=== PATIENT | female | born 1950 | race Caucasian/White ===

== ENCOUNTER 2016-07-22 05:55 | Inpatient (IN) | payer MEDICARE ==
--- NOTE | 2016-07-18 16:37 | HP ---
HISTORY AND PHYSICAL: DATE OF ADMISSION/SURGERY: 07/22/16 ATTENDING SURGEON: Dr. Reza Connor. (DICTATED BY LIDIA BRUMFIELD) PROCEDURE: Left total knee arthroplasty. DATE OF OFFICE VISIT: 07/17/16 CHIEF COMPLAINT: Left knee pain. HISTORY OF PRESENT ILLNESS: The patient is a very pleasant 65-year-old female who presents today for history and physical examination prior to undergoing a left total knee replacement. In brief, the patient has been suffering with some osteoarthritis of the left knee for several years and has tried multiple conservative treatments such as injections both Synvisc and steroid as well as exercise and NSAID therapy without relief. She is elected to undergo a left total knee replacement on 07/22/16. PAST MEDICAL HISTORY: 1. Hypothyroidism. 2. Vitamin D deficiency. 3. Osteopenia. 4. GERD. 5. History of lymphedema with bilateral edema in lower extremities. 6. Obstructive sleep apnea, currently using a CPAP. 7. Hypertension. 8. Gilbert syndrome. PAST SURGICAL HISTORY: 1. Appendectomy. 2. Ovarian cysts x2. 3. THANIA/BSO. 4. Cholecystectomy. 5. Right elbow ORIF. MEDICATIONS: 1. Aldactone 25 mg b.i.d. 2. Caltrate b.i.d. 3. Synthroid 25 mcg p.o. daily. 4. Vitamin D3 supplementation. ALLERGIES: CLEOCIN. FAMILY MEDICAL HISTORY: Mother with lung cancer, nonsmoker. Father with heart disease and hypertension. SOCIAL HISTORY: No tobacco use. Occasional alcohol use. Lives at home with her daughter, grandchildren, and . REVIEW OF SYSTEMS: General: Negative for fevers, chills, or night sweats. No difficulty with anesthesia. HEENT: Negative for headache, lightheadedness, or syncopal episodes. Integument: Negative for abrasions, lesions, open wounds, sores or difficulty with healing. Cardiothoracic: Negative for chest pain, palpitations, or edema. Positive for hypertension. Pulmonary: Negative for shortness of breath with exertion, chronic cough with COPD. GI: Negative for nausea, vomiting, constipation, diarrhea, or GERD. : Negative for nocturia, urinary frequency, urgency, history of UTIs or kidney problems. Musculoskeletal : Positive for generalized arthritis with mild chronic back pain and positive for left knee pain, positive for right knee pain. Neuro: Negative for paresthesias, numbness. No history of seizure, stroke, or epilepsy. Endocrine : Negative for diabetes. Positive for hypothyroidism. Hematologic: Negative for easy bruising, anemia, or excessive bleeding. No history of DVT or PE. Infectious Disease: Negative for MRSA, hepatitis C, or HIV. PHYSICAL EXAMINATION GENERAL: Well appearing, in no acute distress. Alert female appearing stated age. VITAL SIGNS: Height 63 inches, weight 290 pounds. Pulse 88, blood pressure 134 /87, respirations 20, and temperature 98.3. Pain level is 3/10 currently. BMI 51.4. HEENT: Normocephalic, atraumatic. EOMI. NECK: Supple. Trachea midline. PULMONARY: Lungs clear to auscultation bilaterally. No crackles, rhonchi, or wheezes. CARDIOVASCULAR: Regular rate and rhythm. No murmurs, gallops, or rubs. Minimal edema in bilateral lower extremities. ABDOMEN: Soft, nontender, nondistended. Positive obesity. No CVA tenderness bilaterally. NEUROLOGIC: Alert and oriented x3. Cranial nerves grossly intact. Sensation intact to light touch in bilateral lower extremities. MUSCULOSKELETAL: Minimal edema on bilateral lower extremities. Negative Homans sign bilaterally. Posterior tibial pulses 2+ bilaterally. Sensation is intact to light touch bilateral lower extremities. Range of motion of left knee approximately 0-110 degrees. DIAGNOSTIC STUDIES: MRI of the left knee dated 05/27/16. IMPRESSION: The patient is a very pleasant 65-year-old female, who presents today for history and physical examination prior to undergoing a left total knee replacement on 07/22/16. She was recently seen by her primary care physician on 06/21/16 and was cleared for surgery. She will undergo preoperative testing today including a repeat EKG and blood work. She would like to return home if at all possible after the procedure and has made arrangements to live on one floor. A prescription for Percocet, Coumadin, and Colace was sent to the [facility] in [place] and she was educated to bring her CPAP with her on the date of surgery. LIDIA BRUMFIELD [id number]/[facility] #: [id number] [facility]
[2016-07-22] MEDS ORDERED: Buffered Lidocaine 1% SYRIN* 3 ML/SYR SYRINGE INTRADERM ONE (06:00)
[2016-07-22] MEDS ORDERED: Famotidine IV* 10 MG/ML 2 ML (20 mg) IV ONE (06:00)
[2016-07-22] MEDS ORDERED: Dexamethasone IV* 4 MG/ML 1 ML (4 MG) IV SLOW PU ONE (06:00)
[2016-07-22] MEDS ORDERED: fentaNYL* 50 MCG/ML 2 ML VIAL (100 MCG VIAL) IV PRN (07:16)
[2016-07-22] MEDS ORDERED: DiMENhydriNATE IV* 50 MG/ML VIAL IV PUSH PRN ×2 (07:16→11:20)
[2016-07-22] MEDS ORDERED: Ondansetron INJ* 2 MG/ML VIAL IV PRN ×2 (07:16→11:20)
[2016-07-22] MEDS ORDERED: PROCHLORPERAZINE INJ 5 MG/ML 2 ML VIAL IV PRN ×2 (07:16→11:20)
[2016-07-22] MEDS ORDERED: fentaNYL* 50 MCG/ML 2 ML VIAL (100 MCG VIAL) ONE ×3 (08:00→12:28)
[2016-07-22] MEDS ORDERED: Midazolam* 1 MG/ML 5 ML VIAL (5 MG) ONE (08:00)
[2016-07-22] MEDS ORDERED: HYDROmorphone* 1 MG/ML 1 ML SYR ONE ×3 (08:00→12:27)
[2016-07-22] MEDS ORDERED: Morphine PF AMP (0.5MG/ML)* 5 MG/10 ML AMP ONE (08:00)
[2016-07-22] MEDS ORDERED: Famotidine IV* 10 MG/ML 2 ML (20 mg) ONE (08:27)
[2016-07-22] MEDS ORDERED: ceFAZolin 2 GM PREMIX(*) 2 GM/50 ML BAG IVPB ONE (08:27)
[2016-07-22] MEDS ORDERED: Dexamethasone IV* 4 MG/ML 1 ML (4 MG) ONE (08:27)
[2016-07-22] MEDS ORDERED: Meperidine SYRINGE* 50 MG/ML ONE (09:52)
[2016-07-22] MEDS ORDERED: ceFAZolin 1 GM in Dextrose (*) 1 GM/50 ML BAG IVPB ONE (09:56)
[2016-07-22] MEDS ORDERED: Bupivacaine 0.5% SDV PF* 30 ML VIAL ONE (11:04)
[2016-07-22] MEDS ORDERED: Propofol* 1,000 MG/100 ML BTL ONE (11:04)
[2016-07-22] MEDS ORDERED: Nalbuphine* 20 MG/ML 1 ML VIAL IV PRN (11:20)
[2016-07-22] MEDS ORDERED: Naloxone* 0.4 MG/ML 1 ML VIAL IV PRN (11:20)
[2016-07-22] MEDS ORDERED: diPHENhydraMINE IV* 50 MG/ML 1 ml VIAL (BENADRYL) IV PRN (11:20)
[2016-07-22] MEDS ORDERED: Propofol* 10 MG/ML 20 ML BTL IV PUSH ONE (12:25)
[2016-07-22] MEDS ORDERED: Pseudoephedrine TAB* 30 MG PO PRN (12:58)
[2016-07-22] MEDS ORDERED: Bisacodyl SUPP* 10 MG SUPP PR PRN (13:04)
--- NOTE | 2016-07-22 13:55 | RAD ---
Indication: Postop left total knee replacement. 2 views of left knee demonstrates left knee replacement in satisfactory position. No loosening is noted. IMPRESSION: Left knee replacement in satisfactory position.
[2016-07-22] MEDS ORDERED: ceFAZolin 1 GM in Dextrose (*) 1 GM/50 ML BAG IVPB SCH (14:00)
[2016-07-22] MEDS ORDERED: Warfarin TAB(*) 10 MG PO ONE (17:00)
[2016-07-22] MEDS: ceFAZolin 1 GM in Dextrose (*) 1 GM/50 ML BAG IVPB SCH (19:41)
[2016-07-22] MEDS ORDERED: Spironolactone TAB* 25 MG PO SCH (21:00)
[2016-07-22] MEDS ORDERED: oxyCODONE/Acetamin 5/325 MG* TAB PO PRN (21:04)
[2016-07-22] MEDS: Docusate CAP* 100 MG PO SCH (21:12)
--- NOTE | 2016-07-22 21:12 | CONS ---
CONSULTATION REPORT: DATE OF CONSULTATION: 07/22/16 ATTENDING PHYSICIAN WHILE IN THE HOSPITAL: Dionisio Felder MD (report being dictated by Cliff Herbert NP). REQUESTING PHYSICIAN FOR CONSULT: Dr. Connor. REASON FOR MEDICAL CONSULTATION: Medical management of comorbid medical conditions. HISTORY OF PRESENT ILLNESS: I refer you to Dr. Connor's H and P for further details. In short, Ms. Can is a 65-year-old female patient who presented to Dr. Connor's service in the outpatient setting with complaints of left knee pain. She had been dealing with the pain for some time. She had significant osteoarthritis in his knee. She had failed conservative management. She had injections with steroids. She endured PT and also took NSAIDs without relief. She sought care with Dr. Connor and it was felt that she would benefit from a total knee replacement, which she underwent today. She does carry a history of hypothyroidism, vitamin D deficiency, osteopenia, GERD, history of lymphedema with bilateral lower extremity edema and she has a history of GREGORIA, hypertension and Gilbert syndrome. Because of these medical complexities, we were asked to evaluate in consult. She was evaluated in the PACU. She states her biggest complaint is that she feels tired. She specifically denies having any chest pain or shortness of breath. She says that she does not really have sensation in her lower extremities yet, she did receive a spinal. She denies having any abdominal discomfort or back pain. She does state that she recently finished a course of Bactrim for UTI, which was found preoperatively. She denies having any shortness of breath, denies chest pain and states that otherwise she is feeling well besides feeling tired and denies feeling lightheaded or drowsy. She also does admit to taking her diuretics this morning preoperatively, but because of her complexity, we were asked to evaluate in consult. PAST MEDICAL HISTORY: Significant for; 1. Hypothyroidism. 2. GERD. 3. Osteopenia. 4. GREGORIA. 5. Lymphedema. 6. Hypertension. 7. Gilbert syndrome. PAST SURGICAL HISTORY: 1. She has had an appendectomy. 2. Ovarian cyst removal x2. 3. Total abdominal hysterectomy with bilateral salpingo-oophorectomy. 4. She has had a cholecystectomy and she has had a right elbow ORIF. HOME MEDICATIONS: According to the preoperative list she provided includes; 1. Spironolactone 1 tablet p.o. b.i.d. 2. Sudafed 1 tablet p.o. as needed per instructions. 3. Multivitamin 1 tablet daily. 4. Synthroid 1 tablet p.o. daily. 5. Advil 2 tablets p.o. every 6 hours as needed. 6. Bumex 1 tablet in the morning. 7. Benadryl 1 tablet at bedtime as needed. 8. Tylenol 2 tablets p.o. every 6 hours as needed for pain. ALLERGIES TO MEDICATIONS: Include CLINDAMYCIN. FAMILY HISTORY: Her mother had a history of lung cancer. Father had a history of heart disease. SOCIAL HISTORY: She does not smoke. She does not drink alcohol. She is and her is her surrogate decision maker. REVIEW OF SYSTEMS: There is no documented fever. She denied any significant weight change. There was no double vision. She denies having any ear discharge. There is no rhinorrhea. No sore throat. No thyroid enlargement. She denies having any chest pain. There is no orthopnea. No nocturnal dyspnea. There is no abdominal pain. No nausea. No vomiting. No dysuria. No frequency. No seizure. No loss of consciousness. No pruritus. No skin ulcerations. Review of 14 systems completed, all others negative. PHYSICAL EXAMINATION: Vital Signs: Blood pressure 86/56, pulse 62, respirations 14, O2 saturation 98%, she is on 4 L, and her temperature was 97.2. Generally, at this time, Ms. Can is a 65-year-old female patient. She is sitting in the PACU stretcher. She does not appear to be in any acute distress. HEENT: Head is atraumatic. Eyes: EOMs intact. Sclerae were anicteric and not pale. Pupils are reactive to light. Neck was supple. Throat ; oral mucosa appeared to be dry. No oropharyngeal erythema. Heart: Sounds S1 and S2. Regular rate and rhythm. No murmurs, rubs, or gallops. Lungs: Clear to auscultation bilaterally. No wheezes, rales, or rhonchi. Abdomen: Soft, flat, and nontender. Bowel sounds were present. Extremities: Pulses were 2+ throughout. She has no sensation in lower extremities. She has minimal movement just to the toes of the lower extremities currently. She has good pulses and good capillary refill. She is moving the upper extremities. Neurologically she is drowsy, but she does awaken to her name. She does follow commands. She is alert and oriented x3. Her speech is clear. Tongue is midline. She had no facial drooping and no gross obvious focal deficits. Her skin is intact with the exception she has an incision to the left knee, which is covered with an Benedict bandage and there is no drainage noted at this point. LABORATORY DATA: Her labs preoperatively reveals WBC of 11.0, RBC of 5.23, hemoglobin 15.6, hematocrit 47, platelet count of 313. INR is 0.94. The sodium is 137, potassium 4.6, chloride 103, bicarb 26, BUN 15, creatinine 0.73, glucose of 94, total bilirubin of 1.5, AST 27, ALT 31. Urine preop showed positive nitrites, 3+ leukocyte esterase, 3+ WBC, 1+ bacteria. The micro did grow out greater than 100,000 colonies of E. coli and again the patient was treated with Bactrim for 5 days and has finished the course. She did have a preop chest x-ray, which revealed no active cardiopulmonary disease. She had a EKG that was in the chart that showed a normal sinus rhythm. No ST elevations or T-wave inversions. There was a rate of 60. Old medical records reviewed. ASSESSMENT AND PLAN: Ms. Can is a 65-year-old female patient coming into the hospital today for an elective left total knee arthroplasty. We were asked to evaluate in consultation to help manage her other medical problems. Our recommendations at this point are; 1. Status post left total knee replacement; I will defer the management of this to Dr. Connor and his team. 2. Hypothyroidism. Continue the Synthroid. 3. Gastroesophageal reflux disease. Continue with her current medical management. 4. Osteopenia, she can follow with her primary. 5. Obstructive sleep apnea, continue with CPAP. 6. Hypertension with a history of lymphedema. I do see that she is Aldactone and Bumex. Her postoperative pressures are right around 90 systolically. She did take her diuretics in the morning. My plan at this point is to hold the diuretics. We will actually hydrate her and we will continue to follow. She is asymptomatic with the blood pressure. I suspect that part of the low pressure now is probably related to the spinal. We will just continue to monitor for the time being and restart diuretics when we are able. 7. History of Gilbert syndrome. She can follow with her primary. Not an active issue currently. 8. DVT prophylaxis. We will defer to the primary team. 9. Fluids, electrolytes and nutrition. She can have a regular diet. 10. Obstructive sleep apnea. I did order a CPAP and we will put her on continuous pulse oximetry overnight. 11. Code status. Full code. TIME SPENT: Time spent on the admission was approximately 60 minutes, greater than half time spent with face to face with the patient obtaining my history and physical, the other half of the time spent going over the plan of care with the patient and implementing the plan of care. I discussed the plan of care with my attending, Dr. Felder who is in agreement. CLIFF HERBERT NP CC: Dr. Quinonez; Dr. Connor* [id number]/[facility] #: [id number] MTDIra
[2016-07-22] MEDS: Magnesium Hydroxide LIQ* 30 ML UDC PO SCH (21:13)
[2016-07-22] MEDS ORDERED: oxyCODONE/Acetamin 5/325 MG* TAB ONE (21:15)
--- NOTE | 2016-07-23 03:14 | OP ---
DATE OF OPERATION: 07/22/16 - ROOM #342 DATE OF : 50 SURGEON: Reza Connor MD. ACCESS REPRESENTATIVE: LIDIA Rosario. ANESTHESIOLOGIST: Jamari Can MD ANESTHESIA: Spinal/regional/sedation. PRE-OP DIAGNOSIS: Osteoarthritis, left knee. POST-OP DIAGNOSIS: Osteoarthritis, left knee. OPERATIVE PROCEDURE: Left total knee arthroplasty. ESTIMATED BLOOD LOSS: 100 cc. COMPLICATIONS: None. HARDWARE: Monster Persona #5 femur, D tibia, 10-mm polyethylene, 32-mm all- polyethylene patellar button. SUMMARY: Mrs. Can is a 65-year-old female who has had a long history of troubles with both of her knees. She has been treated conservatively with antiinflammatories, physical therapy, and various injections and they had worked well until recently. The most recent injection; however, really did not give her any of the relief that she previously had and she is having significant difficulty just with simple ADLs secondary to pain. I discussed with her that a total knee arthroplasty should work well to decrease her pain and improve her function. Risks of surgery such as infection, scar formation, stiffness, DVT, pulmonary embolism, hardware failure and continued pain were some of the risks discussed. She had been declared medically optimized and wished to proceed. DESCRIPTION OF PROCEDURE: The patient was brought to the OR and after a block had been placed in the holding area. Spinal anesthesia was introduced and a Aleman catheter was placed. Tourniquet was placed over the proximal left thigh and was used during the case. Total tourniquet time would be a little bit over 60 minutes. Left knee was prepped and then draped. Esmarch was used to exsanguinate the leg and the tourniquet was raised. Midline incision was made just medial to the tibial tubercle and carried upwards for about 7 or 8 cm over the superior pole of the patella. Incision was carried down through the skin and subcutaneous fat. Small bleeders encountered were ligated using electrocautery. Extensor mechanism was exposed and a sharp parapatellar arthrotomy was made. Clear thickened yellowish joint fluid was encountered. Obvious wear of the patellar was immediately evident. Jo Campbell was assisting during the case and she helped with positioning as well as the approach, placement of the component and closure and the case would not have been possible to do without her. Fat pad was sharply excised and the soft tissues were sharply elevated from the medial side of the tibia. Patella measured 20 mm in thickness and initially a 7-mm cut was taken and then this was gently shaved until I left about 12-mm worth of patella. The patella was then easily subluxed laterally and the knee was flexed up. Step drill was used to open the femoral canal and the intramedullary guide was placed. Guide was adjusted until it felt parallel to the epicondyles and then pinned into place. Distal femoral cutting guide was then pinned into place, and intramedullary guide was removed. Distal femoral cut was taken and it appeared a nice cut was obtained. Femur was sized and she sat right on a 5. Holes were drilled and cutting block was placed. Superior hole was drilled and this came up nicely right on the top side of the femur, so I knew I would not notch the anterior cortex. Anterior and posterior femoral cuts followed by the chamfer cuts were all taken. Attention was turned to the tibia. Step drill was used to open the tibial canal and the intramedullary guide was placed. Outrigger was placed and adjusted until it appeared it would take 2 mm from the worn medial side. Cutting guide was then adjusted using the extramedullary alignment shannan and then pinned into place. Proximal tibial cut was taken and it appeared a nice cut was obtained. A 10-spacer block was placed nice and flat over the top side of the tibia and with a drop shannan, the alignment of the tibial cut appeared perfect. With flexion, she sat quite nicely and just had a little bit of plane , but with extension, she was really quite tight on the medial side and loose on the lateral side. Not enough bone had been taken from the medial femoral condyle and using a free hand cut, approximately 1.5 mm was taken. Cutting block was replaced so that I could recut the chamfer blocks and now with a 10 block, she sat much better. There was just a little bit of play, which was just about the same as she was prior to surgery. Tibia was then sized and a D sat very nicely. Proximal tibia was drilled and then punched. Trial femur was then placed and the notch cut was finished and stud holes were drilled. Trial polyethylene was placed and with a 10, she came out nicely into full extension and was not too tight and she could flex to about 105 degrees. She was very limited by her body habitus as her pannus came down and flexion upwards of the leg was difficult because of that pannus. The knee was stable throughout. The patella tracking appeared to be fine. Patella was sized and a 29 sat very nicely. Holes were drilled and trial was snapped into place. Again with flexion and extension, patella tracking appeared fine. Trial instrumentation was removed and the knee was copiously pulse lavaged. Cement was being prepared. Tibia followed by femur and patella were all cemented into place. Excess cement was removed and cement was allowed to harden. Once the cement had hardened, the knee was again searched for excess cement and several small pieces were found. She was again trialed with a 10 trial polyethylene and had the same wonderful motion and stability. A 10 polyethylene was then snapped into place. Knee was again copiously pulse lavaged and the parapatellar arthrotomy was repaired using interrupted #1 Vicryl sutures. Tourniquet was let down and no significant bleeding was encountered. Subcutaneous tissues were copiously pulse lavaged and the subcutaneous tissues were approximated using 2- 0 Vicryl. Skin was closed using maximo. Sterile dressing was applied. The patient was then awake and stable on transfer back to the recovery room. [id number]/[facility] #: [id number] NURA
[2016-07-23] MEDS ORDERED: oxyCODONE/Acetamin 5/325 MG* TAB PO PRN (03:20)
[2016-07-23] MEDS ORDERED: Acetaminophen TAB* 325 MG PO PRN (03:20)
[2016-07-23] MEDS ORDERED: Ondansetron INJ* 2 MG/ML VIAL IV PRN (03:20)
[2016-07-23] MEDS ORDERED: diPHENhydraMINE IV* 50 MG/ML 1 ml VIAL (BENADRYL) IV PRN (03:20)
[2016-07-23] MEDS ORDERED: Morphine INJ* 2 MG/ML 1 ML SYRINGE IV PRN (03:20)
[2016-07-23] MEDS: oxyCODONE/Acetamin 5/325 MG* TAB PO PRN ×4 (03:46→20:21)
[2016-07-23] MEDS: ceFAZolin 1 GM in Dextrose (*) 1 GM/50 ML BAG IVPB SCH ×2 (03:46→11:32)
[2016-07-23 05:02] LABS: Hematocrit 37 % (35-47); Hemoglobin 12.1 g/dl (12.0-16.0)
[2016-07-23 05:10] LABS: BUN/Creatinine Ratio 17.4 (8-20); Calcium 8.7 mg/dL (8.6-10.3); EGFR African American 78.8 (>60); EGFR Non-African American 61.3 (>60)
[2016-07-23] MEDS: Levothyroxine TAB* 25 MCG TAB PO SCH (05:29)
[2016-07-23] MEDS: Magnesium Hydroxide LIQ* 30 ML UDC PO SCH ×2 (07:25→20:21)
[2016-07-23] MEDS: Docusate CAP* 100 MG PO SCH ×2 (07:25→20:21)
[2016-07-23] MEDS: Prenatal Vitamin TAB PO SCH (07:25)
[2016-07-23] MEDS: oxyCODONE TAB* 5 MG TAB PO PRN ×4 (07:25→22:50)
[2016-07-23] MEDS: Heparin VIAL(*) 5000 UNITS/ML VIAL (FIVE THOUSAND) SUBCUT SCH ×2 (07:26→20:24)
--- NOTE | 2016-07-23 07:55 | PN ---
Progress Note - Progress Note SOAP: Subjective: pt resting comfortably with no complaints Objective: Vital Signs Temp Pulse Resp BP Pulse Ox 98.0 F 65 16 108/49 94 07/23/16 07:13 07/23/16 07:13 07/23/16 07:25 07/23/16 07:13 07/23/16 07:13 Laboratory Last Values Hgb 12.1 g/dl (12.0-16.0) 07/23/16 04:36 Hct 37 % (35-47) 07/23/16 04:36 INR (Anticoag Therapy) 1.09 (0.89-1.11) 07/23/16 04:36 Sodium 130 mmol/L (133-145) L 07/23/16 04:36 Potassium 4.0 mmol/L (3.5-5.0) 07/23/16 04:36 Chloride 97 mmol/L (101-111) L 07/23/16 04:36 Carbon Dioxide 27 mmol/L (22-32) 07/23/16 04:36 Anion Gap 6 mmol/L (2-11) 07/23/16 04:36 BUN 16 mg/dL (6-24) 07/23/16 04:36 Creatinine 0.92 mg/dL (0.51-0.95) 07/23/16 04:36 Est GFR ( Amer) 78.8 (>60) 07/23/16 04:36 Est GFR (Non-Af Amer) 61.3 (>60) 07/23/16 04:36 BUN/Creatinine Ratio 17.4 (8-20) 07/23/16 04:36 Glucose 162 mg/dL (70-100) H 07/23/16 04:36 Calcium 8.7 mg/dL (8.6-10.3) 07/23/16 04:36 incision: c/d/i PE: intact B/L LE strengths, 2+ DP pulses, intact sensation Assessment: s/p left TKA Plan: 1) continue Ancef for 24 hours 2) PT/OT- WBAT 3) continue Heparin/coumadin/SCD's for DVT prophylaxis 4) will dose coumadin 8 mg tonight
[2016-07-23] MEDS ORDERED: BUMETANIDE PO SCH (09:00)
--- NOTE | 2016-07-23 14:16 | PN ---
Subjective Date of Service: 07/23/16 Interval History: This is a 65 yo female with hypothyroidism, GERD, GREGORIA, HTN and Gilbert's syndrome who presented for an elective knee replacement with Dr Connor. Hospitalist group is consulting for co-management of medical conditions. Patient offers no acute complaints. Denies CP, SOB, abd pain, n/v. Objective Active Medications: Acetaminophen (Tylenol Tab*) 650 mg PO Q4H PRN PRN Reason: FEVER/PAIN Bisacodyl (Dulcolax Supp*) 10 mg NE DAILY PRN PRN Reason: constipation Diphenhydramine HCl (Benadryl Iv*) 25 mg IV Q6H PRN PRN Reason: itching Docusate Sodium (Colace Cap*) 100 mg PO BID [facility] Last Admin: 07/23/16 07:25 Dose: 100 mg Heparin Sodium (Porcine) (Heparin Vial(*)) 5,000 units SUBCUT Q12HR [facility] Last Admin: 07/23/16 07:26 Dose: 5,000 units Lactated Ringer's (Lactated Ringers 1000 Ml Bag*) 1,000 mls @ 100 mls/hr IV PER RATE [facility] Levothyroxine Sodium (Synthroid Tab*) 25 mcg PO 0600 [facility] Last Admin: 07/23/16 05:29 Dose: 25 mcg Magnesium Hydroxide (Milk Of Magnesia Liq*) 30 ml PO BID [facility] Last Admin: 07/23/16 07:25 Dose: 30 ml Morphine Sulfate (Morphine Inj (Syringe)*) 2 mg IV Q2H PRN PRN Reason: PAIN Multivitamins ( Vitamin Tab*) 1 tab PO QAM [facility] Last Admin: 07/23/16 07:25 Dose: 1 tab Ondansetron HCl (Zofran Inj*) 4 mg IV Q6H PRN PRN Reason: nausea Oxycodone HCl (Roxycodone Tab*) 10 mg PO Q4H PRN PRN Reason: PAIN Last Admin: 07/23/16 14:01 Dose: 10 mg Oxycodone/Acetaminophen (Percocet 5/325 Tab*) 1 tab PO Q3H PRN PRN Reason: PAIN - MODERATE Oxycodone/Acetaminophen (Percocet 5/325 Tab*) 2 tab PO Q4H PRN PRN Reason: PAIN Last Admin: 07/23/16 11:31 Dose: 2 tab Pharmacy Profile Note (Coumadin Daily Reminder*) 1 note FOLLOW UP 1700 NEVA Warfarin Sodium (Coumadin Tab(*)) 8 mg PO ONCE@1700 ONE PRN Reason: Protocol Stop: 07/23/16 17:01 Vital Signs: Temp Pulse Resp BP Pulse Ox 98.0 F 76 20 100/50 96 07/23/16 10:56 07/23/16 10:56 07/23/16 14:01 07/23/16 10:56 07/23/16 10:56 Oxygen Devices in Use Now: None Appearance: Well appearing, in NAD. Up and sitting in a chair. Accompanied by her . Respiratory: Symmetrical Chest Expansion and Respiratory Effort, Clear to Auscultation Cardiovascular: NL Sounds; No Murmurs; No JVD, RRR Abdominal: NL Sounds; No Tenderness; No Distention Extremities: - - L knee in surgical dressing, 1+ LLE edema, trace RLE edema Skin: No Rash or Ulcers Neurological: Alert and Oriented x 3 Result Diagrams: 07/23/16 04:36 07/23/16 04:36 Assess/Plan/Problems-Billing Assessment: This is a 65 yo female with obesity, hypothyroidism, GERD, GREGORIA, HTN and Gilbert' s syndrome who is s/p elective L TKA by Dr Connor 07/22/16. Hospitalists have been asked to co-manage medical conditions. - Patient Problems (1) Status post total knee replacement Comment: POD #1 Management per ortho (2) HTN (hypertension) Comment: Slightly hypotensive Cont to hold diuretics, likely restart tomorrow, but will re-eval in am for readiness (3) Hypothyroidism Comment: Cont levothyroxine (4) Obesity Comment: BMI 50 (5) GERD (gastroesophageal reflux disease) Comment: No current complaints No PPI on home med list (6) GREGORIA (obstructive sleep apnea) Comment: Cont CPAP (7) Reddell syndrome Comment: Tbili 1.5 from pre-op labs No jaundice on exam (8) Full code status (9) DVT prophylaxis Comment: SQ Heparin bridging to Coumadin per other Status and Disposition: Discharge planning per ortho. Hospitalists will continue to follow along. No acute concerns.
[2016-07-23] MEDS ORDERED: Warfarin TAB(*) 4 MG PO ONE (17:00)
[2016-07-24] MEDS: oxyCODONE/Acetamin 5/325 MG* TAB PO PRN ×4 (01:01→17:37)
[2016-07-24] MEDS: oxyCODONE TAB* 5 MG TAB PO PRN ×3 (03:37→21:29)
[2016-07-24 05:59] LABS: Hematocrit 37 % (35-47); Hemoglobin 11.9 g/dl (12.0-16.0)
[2016-07-24] MEDS: Levothyroxine TAB* 25 MCG TAB PO SCH (06:24)
--- NOTE | 2016-07-24 08:46 | PN ---
Progress Note - Progress Note SOAP: Subjective: Pt is doing well. Her pain is well controlled. She is doing well with therapy. She denies CP, SOB, N/T, calf pain, or fever chills. VSS overnight Objective: PE- 65 y/o F in NAD lying comfortably in bed, A&O x 3 LLE- dressing changed, incision well healing with no sign of infection, mild swelling of the lower leg, calf soft nontender, +2 DP pulse, sensation intact Vital Signs Temp Pulse Resp BP Pulse Ox 98.5 F 83 16 131/59 92 07/24/16 07:17 07/24/16 07:17 07/24/16 08:00 07/24/16 07:17 07/24/16 08:00 Laboratory Results - last 24 hr 07/24/16 07/24/16 05:34 05:34 Hgb 11.9 L Hct 37 INR (Anticoag Therapy) 2.53 H Assessment: POD 2 s/p left TKA Plan: PT/OT- WBAT DC Heparin, hold coumadin, SCD's for DVT prophylaxis appreciate hospitalist input DC to home with DAISHA wong
[2016-07-24] MEDS: Magnesium Hydroxide LIQ* 30 ML UDC PO SCH ×2 (09:18→21:29)
[2016-07-24] MEDS: Prenatal Vitamin TAB PO SCH (09:18)
[2016-07-24] MEDS: Docusate CAP* 100 MG PO SCH ×2 (09:18→21:29)
--- NOTE | 2016-07-24 15:17 | PN ---
Subjective Date of Service: 07/24/16 Interval History: Patient offers no acute complaints. Pain is well controlled. No CP, SOB, abd pain, n/v. Objective Active Medications: Acetaminophen (Tylenol Tab*) 650 mg PO Q4H PRN PRN Reason: FEVER/PAIN Bisacodyl (Dulcolax Supp*) 10 mg DC DAILY PRN PRN Reason: constipation Diphenhydramine HCl (Benadryl Iv*) 25 mg IV Q6H PRN PRN Reason: itching Docusate Sodium (Colace Cap*) 100 mg PO BID [facility] Last Admin: 07/24/16 09:18 Dose: 100 mg Levothyroxine Sodium (Synthroid Tab*) 25 mcg PO 0600 [facility] Last Admin: 07/24/16 06:24 Dose: 25 mcg Magnesium Hydroxide (Milk Of Magnesia Liq*) 30 ml PO BID [facility] Last Admin: 07/24/16 09:18 Dose: 30 ml Morphine Sulfate (Morphine Inj (Syringe)*) 2 mg IV Q2H PRN PRN Reason: PAIN Multivitamins ( Vitamin Tab*) 1 tab PO QAM [facility] Last Admin: 07/24/16 09:18 Dose: 1 tab Ondansetron HCl (Zofran Inj*) 4 mg IV Q6H PRN PRN Reason: nausea Oxycodone HCl (Roxycodone Tab*) 10 mg PO Q4H PRN PRN Reason: PAIN Last Admin: 07/24/16 09:18 Dose: 10 mg Oxycodone/Acetaminophen (Percocet 5/325 Tab*) 1 tab PO Q3H PRN PRN Reason: PAIN - MODERATE Oxycodone/Acetaminophen (Percocet 5/325 Tab*) 2 tab PO Q4H PRN PRN Reason: PAIN Last Admin: 07/24/16 13:10 Dose: 2 tab Pharmacy Profile Note (Coumadin Daily Reminder*) 1 note FOLLOW UP 1700 [facility] Last Admin: 07/23/16 16:38 Dose: 1 note Vital Signs: Temp Pulse Resp BP Pulse Ox 98.2 F 74 16 122/64 95 07/24/16 11:23 07/24/16 11:23 07/24/16 13:10 07/24/16 11:23 07/24/16 11:23 Oxygen Devices in Use Now: None Appearance: Well appearing, in NAD. Just finishing with PT. Accompanied by her Neck: NL Appearance and Movements; NL JVP Respiratory: Symmetrical Chest Expansion and Respiratory Effort, Clear to Auscultation Cardiovascular: NL Sounds; No Murmurs; No JVD, RRR Abdominal: NL Sounds; No Tenderness; No Distention Extremities: - - 1-2+ LE edema Skin: No Rash or Ulcers Neurological: Alert and Oriented x 3 Result Diagrams: 07/24/16 05:34 07/23/16 04:36 Assess/Plan/Problems-Billing Assessment: This is a 65 yo female with obesity, hypothyroidism, GERD, GREGORIA, HTN and Gilbert' s syndrome who is s/p elective L TKA by Dr Connor 07/22/16. Hospitalists have been asked to co-manage medical conditions. - Patient Problems (1) Status post total knee replacement Comment: POD #2 Management per ortho (2) HTN (hypertension) Comment: Now normotensive Resume diuretics tomorrow (3) Hypothyroidism Comment: Cont levothyroxine (4) Obesity Comment: BMI 50 (5) GERD (gastroesophageal reflux disease) Comment: No current complaints No PPI on home med list (6) GREGORIA (obstructive sleep apnea) Comment: Cont CPAP (7) [place] syndrome Comment: Tbili 1.5 from pre-op labs No jaundice on exam (8) Full code status (9) DVT prophylaxis Comment: Coumadin per ortho INR therapeutic Status and Disposition: Discharge planning per ortho. Hospitalists will continue to follow along. No acute concerns.
[2016-07-25] MEDS: oxyCODONE/Acetamin 5/325 MG* TAB PO PRN ×3 (03:13→12:51)
[2016-07-25 05:32] LABS: Hematocrit 36 % (35-47); Hemoglobin 11.7 g/dl (12.0-16.0)
[2016-07-25] MEDS: Levothyroxine TAB* 25 MCG TAB PO SCH (06:13)
[2016-07-25] MEDS: Magnesium Hydroxide LIQ* 30 ML UDC PO SCH (08:20)
[2016-07-25] MEDS: Prenatal Vitamin TAB PO SCH (08:21)
[2016-07-25] MEDS: Docusate CAP* 100 MG PO SCH (08:21)
--- NOTE | 2016-07-25 08:46 | PN ---
Progress Note - Progress Note SOAP: Subjective: pt OOB to chair with no complaints Objective: Vital Signs Temp Pulse Resp BP Pulse Ox 98.1 F 89 18 137/75 96 07/25/16 07:21 07/25/16 07:21 07/25/16 08:21 07/25/16 07:21 07/25/16 08:00 Laboratory Last Values Hgb 11.7 g/dl (12.0-16.0) L 07/25/16 05:25 Hct 36 % (35-47) 07/25/16 05:25 INR (Anticoag Therapy) 2.69 (0.89-1.11) H 07/25/16 05:25 Sodium 130 mmol/L (133-145) L 07/23/16 04:36 Potassium 4.0 mmol/L (3.5-5.0) 07/23/16 04:36 Chloride 97 mmol/L (101-111) L 07/23/16 04:36 Carbon Dioxide 27 mmol/L (22-32) 07/23/16 04:36 Anion Gap 6 mmol/L (2-11) 07/23/16 04:36 BUN 16 mg/dL (6-24) 07/23/16 04:36 Creatinine 0.92 mg/dL (0.51-0.95) 07/23/16 04:36 Est GFR ( Amer) 78.8 (>60) 07/23/16 04:36 Est GFR (Non-Af Amer) 61.3 (>60) 07/23/16 04:36 BUN/Creatinine Ratio 17.4 (8-20) 07/23/16 04:36 Glucose 162 mg/dL (70-100) H 07/23/16 04:36 Calcium 8.7 mg/dL (8.6-10.3) 07/23/16 04:36 incision; c/d; dressing changed PE: intact B/L LE strengths, intact sensation, 2+DP pulses Assessment: s/p left TKA Plan: 1) hospitalist co-managing 2) hold coumadin 3) continue SCD's for DVT prophylaxis 4) home today, f/u with Nikolas in 4 weeks
--- NOTE | 2016-07-25 10:51 | PN ---
Subjective Date of Service: 07/25/16 Interval History: Patient offers no acute complaints. She is ready to return home. She has yet to have a BM since surgery. Pain is well controlled. No CP, SOB, abd pain, n/ v. Objective Active Medications: Acetaminophen (Tylenol Tab*) 650 mg PO Q4H PRN PRN Reason: FEVER/PAIN Bisacodyl (Dulcolax Supp*) 10 mg [place] DAILY PRN PRN Reason: constipation Last Admin: 07/25/16 10:14 Dose: 10 mg Diphenhydramine HCl (Benadryl Iv*) 25 mg IV Q6H PRN PRN Reason: itching Docusate Sodium (Colace Cap*) 100 mg PO BID [facility] Last Admin: 07/25/16 08:21 Dose: 100 mg Levothyroxine Sodium (Synthroid Tab*) 25 mcg PO 0600 [facility] Last Admin: 07/25/16 06:13 Dose: 25 mcg Magnesium Hydroxide (Milk Of Magnesia Liq*) 30 ml PO BID [facility] Last Admin: 07/25/16 08:20 Dose: 30 ml Morphine Sulfate (Morphine Inj (Syringe)*) 2 mg IV Q2H PRN PRN Reason: PAIN Multivitamins ( Vitamin Tab*) 1 tab PO QAM [facility] Last Admin: 07/25/16 08:21 Dose: 1 tab Ondansetron HCl (Zofran Inj*) 4 mg IV Q6H PRN PRN Reason: nausea Oxycodone HCl (Roxycodone Tab*) 10 mg PO Q4H PRN PRN Reason: PAIN Last Admin: 07/24/16 21:29 Dose: 10 mg Oxycodone/Acetaminophen (Percocet 5/325 Tab*) 1 tab PO Q3H PRN PRN Reason: PAIN - MODERATE Oxycodone/Acetaminophen (Percocet 5/325 Tab*) 2 tab PO Q4H PRN PRN Reason: PAIN Last Admin: 07/25/16 08:21 Dose: 2 tab Pharmacy Profile Note (Coumadin Daily Reminder*) 1 note FOLLOW UP 1700 [facility] Last Admin: 07/24/16 15:59 Dose: Not Given Vital Signs: Temp Pulse Resp BP Pulse Ox 98.1 F 89 16 137/75 96 07/25/16 07:21 07/25/16 07:21 07/25/16 10:21 07/25/16 07:21 07/25/16 08:00 Oxygen Devices in Use Now: None Appearance: Well appearing, in NAD Respiratory: Symmetrical Chest Expansion and Respiratory Effort, Clear to Auscultation Cardiovascular: NL Sounds; No Murmurs; No JVD, RRR Abdominal: NL Sounds; No Tenderness; No Distention Extremities: - - 2+ LLE edema, 1+ RLE Neurological: Alert and Oriented x 3 Result Diagrams: 07/25/16 05:25 07/23/16 04:36 Assess/Plan/Problems-Billing Assessment: This is a 65 yo female with obesity, hypothyroidism, GERD, GREGORIA, HTN and Gilbert' s syndrome who is s/p elective L TKA by Dr Connor 07/22/16. Hospitalists have been asked to co-manage medical conditions. - Patient Problems (1) Status post total knee replacement Comment: POD #3 Management per ortho, plan for discharge (2) HTN (hypertension) Comment: Now normotensive Resumed diuretics today (3) Hypothyroidism Comment: Cont levothyroxine (4) Obesity Comment: BMI 50 (5) GERD (gastroesophageal reflux disease) Comment: No current complaints No PPI on home med list (6) GREGORIA (obstructive sleep apnea) Comment: Cont CPAP (7) [place] syndrome Comment: Tbili 1.5 from pre-op labs No jaundice on exam (8) Full code status (9) DVT prophylaxis Comment: Coumadin per ortho INR therapeutic Status and Disposition: Discharged per ortho today. Recommend resuming all home medications, no medical concerns during hospital stay.
[2016-07-25 12:07] VITALS: BP 130/59
--- NOTE | 2016-07-25 22:23 | DS ---
DISCHARGE SUMMARY: DATE OF ADMISSION: 07/22/16 DATE OF DISCHARGE: 07/25/16 SURGEON: Reza Connor MD (DICTATED BY LIDIA CASSIDY) PRINCIPAL DIAGNOSIS: Osteoarthritis, left knee. DISCHARGE DIAGNOSIS: Osteoarthritis, left knee. HISTORY OF PRESENT ILLNESS: Ms. Can is a 65-year-old female with complaints of left knee pain secondary to end-stage osteoarthritis of the left knee. She failed conservative management and has elected to proceed with a left total knee arthroplasty. HOSPITAL COURSE: Ms. Can is a 65-year-old female. She was admitted electively to the hospital on 07/22/16 and underwent a left total knee arthroplasty. She tolerated the procedure well. Postoperatively, she was placed on Coumadin for DVT prophylaxis. On postoperative day #1, her H and H was 12.1 and 37. On postoperative day #2, her H and H was 11.9 and 37. On postoperative day #3, her H and H was 11.7 and 36. On postoperative day #2, her INR was 2.53 and her Coumadin was held. At the time of discharge, her INR was 2.69. She was discharged home on 07/25/16 in stable condition. DISCHARGE MEDICATIONS: 1. Multivitamin. 2. Percocet. 3. Coumadin. 4. Colace. 5. Synthroid. PHYSICAL EXAMINATION UPON DISCHARGE: She was afebrile. Vital signs are stable. Her wound was clean, dry, and healing well. She was able to ambulate with the aid of assistive devices. Her lower extremity muscle group strengths were intact at 5/5. She has 2+ dorsalis pedis pulses. Intact sensation. DISCHARGE INSTRUCTIONS: Ms. Can was discharged home in stable condition. She was given a prescription for Coumadin for DVT prophylaxis as well as Percocet for pain control. She can take Percocet every 4 to 6 hours. Since her INR was elevated today, we are going to hold her Coumadin for tonight and __ ____ and she was instructed to take 4 mg Friday night and 4 mg Friday night. She will have her INR rechecked on Friday with [facility]. She can follow up with Dr. Connor in 4 weeks and we would like [facility] to take the maximo out in 14 days. We have asked her to call our office with any questions or concerns prior to that time. LIDIA CASSIDY [id number]/[facility] #: [id number] [facility]ITAL[facility]
== END 2016-07-25 14:49 | disposition home health service (06) | DRG 470 ==
LOC: AA 07:55 → SSU 13:04
PROVIDERS: ADMIT Orthopaedic Surgery; ATTEND Orthopaedic Surgery
PROC: 0SRD0J9 Replacement of Left Knee Joint with Synthetic Substitute, Cemented, Open Approach (ICD-10-PCS; principal; 2016-07-22 09:30)
DX: M17.12 Unilateral primary osteoarthritis, left knee (principal); I95.9 Hypotension, unspecified; Z68.43 Body mass index [BMI] 50.0-59.9, adult; E03.9 Hypothyroidism, unspecified; M85.88 Other specified disorders of bone density and structure, other site; K21.9 Gastro-esophageal reflux disease without esophagitis; G47.33 Obstructive sleep apnea (adult) (pediatric); I10 Essential (primary) hypertension; E80.4 Gilbert syndrome; M54.9 Dorsalgia, unspecified; G89.29 Other chronic pain; M15.9 Polyosteoarthritis, unspecified; E66.9 Obesity, unspecified; I89.0 Lymphedema, not elsewhere classified; I87.2 Venous insufficiency (chronic) (peripheral); Z79.01 Long term (current) use of anticoagulants; Z90.722 Acquired absence of ovaries, bilateral; Z90.710 Acquired absence of both cervix and uterus; Z90.49 Acquired absence of other specified parts of digestive tract; Z88.1 Allergy status to other antibiotic agents; Z82.49 Family history of ischemic heart disease and other diseases of the circulatory system; Z80.1 Family history of malignant neoplasm of trachea, bronchus and lung
CPT/HCPCS: 36415; 80048; 85014; 85018; 85610; 88305; 88311; 94760; A9270-GY; C1776; J0690; J1100; J1170; J1644; J2250; J2704; J3010

== ENCOUNTER 2016-12-16 05:54 | Inpatient (IN) | payer MEDICARE ==
--- NOTE | 2016-12-13 12:28 | HP ---
Amended report to enter cosigning doctor. HISTORY AND PHYSICAL: DATE OF ADMISSION/SURGERY: 12/16/16 DATE OF OFFICE VISIT: 12/11/16 ATTENDING PHYSICIAN: Reza Connor MD* (dictated by LIDIA Brumfield). CHIEF COMPLAINT: Right knee pain. HISTORY OF PRESENT ILLNESS: The patient is a very pleasant 66-year-old female, who presents today for history and physical examination prior to undergoing a right total knee replacement. The patient underwent a left total knee replacement in July of this year and has recovered well; however, continues to have osteoarthritis with increasing pain that is not treated by conservative measures. She has tried Synvisc, steroid, exercise, as well as NSAID therapy without relief. She has elected to undergo a right total knee replacement on by Dr. Connor. PAST MEDICAL HISTORY: 1. Hyperthyroidism. 2. Vitamin D deficiency. 3. Osteopenia. 4. GERD. 5. History of lymph edema with bilateral edema in lower extremities. 6. History of obstructive sleep apnea, currently using a CPAP. 7. Hypertension. 8. Gilbert syndrome. PAST SURGICAL HISTORY: 1. Appendectomy. 2. Ovarian cyst x2. 3. THANIA/BSO. 4. Cholecystectomy. 5. Right elbow ORIF. 6. Left total knee arthroplasty. MEDICATIONS: 1. Aldactone 25 mg b.i.d. 2. Caltrate b.i.d. 3. Synthroid 25 mcg p.o. daily. 4. Vitamin D3 supplementations. 5. Bumetanide 1 mg 1 tablet daily. 6. Multivitamin. ALLERGIES: CLEOCIN. FAMILY MEDICAL HISTORY: Mother with lung cancer, nonsmoker. Father with heart disease and hypertension. SOCIAL HISTORY: No tobacco use, occasional alcohol use. Lives at home with her daughter, grandchildren, and . REVIEW OF SYSTEMS: General: No fevers, chills, or night sweats. No difficulty with anesthesia and prior surgeries. HEENT: Negative for headache, lightheadedness or syncopal episodes. Integumentary: Negative for abrasions, lesions, open wounds or sores. Positive redness and swelling of bilateral lower extremities. Cardiothoracic: Negative for chest pain, palpitations or murmurs. Positive for hypertension. Positive for bilateral lower extremity edema. Pulmonary: Negative for shortness of breath with exertion, chronic cough or COPD. GI: Negative for nausea, vomiting, constipation, diarrhea or GERD. : Negative for nocturia, urinary frequency, urgency, history of UTIs or kidney problems. Musculoskeletal: Positive for generalized arthritis with mild chronic back pain, positive for right knee pain. Neuro: Negative for paresthesias, numbness, history of seizure, stroke, or epilepsy. Endocrine: Negative for diabetes. Positive for hypothyroidism. Hematologic: Negative for easy bruising, anemia, excessive bleeding. No history of DVTs or PEs. Infectious Disease: Negative for MRSA, hepatitis C, or HIV. Positive for Gilbert syndrome. PHYSICAL EXAMINATION GENERAL: Well appearing, in no acute distress, alert female, appearing stated age. VITAL SIGNS: Height 63 inches, weight 282 pounds, blood pressure 118/78, respirations 18, temperature 97.5, and BMI of 49.9. HEENT: Normocephalic, atraumatic. EOMI. NECK: Supple. Trachea midline. PULMONARY: Lungs clear to auscultation bilaterally. No crackles, rhonchi or wheezes. CARDIOVASCULAR: Regular rate and rhythm. No murmurs, gallops or rubs. Moderate edema in bilateral lower extremities. ABDOMEN: Soft, nontender, nondistended. Positive obesity. No CVA tenderness bilaterally. NEUROLOGIC: Alert and oriented x3. Cranial nerves grossly intact. Sensation intact to light touch to bilateral lower extremities. MUSCULOSKELETAL: Moderate edema in bilateral lower extremities with mild associated erythema. Negative Homans sign bilaterally. Posterior tibial pulses 2+ bilaterally. Sensation is intact to light touch to bilateral lower extremities. Range of motion of right knee approximately 0 to 120 degrees. Positive tenderness over the medial joint line. DIAGNOSTIC STUDIES: Imaging performed at [facility]. IMPRESSION: The patient is a very pleasant 66-year-old female who presents today for a history and physical examination prior to undergoing a right total knee replacement on 12/16/16. She was recently seen by her primary care physician, who has cleared for surgery, on 11/21/16. She will undergo preoperative testing today to include a repeat blood work. She would like to return home, if possible, after the procedure and lives on one floor. Medications were sent to the patient's pharmacy for postoperative pain management and DVT prophylaxis. She was educated to bring her CPAP with her on the date of surgery. LIDIA BRUMFIELD [id number]/[facility] #: [id number] NURA
[2016-12-16] MEDS ORDERED: Famotidine IV* 10 MG/ML 2 ML (20 mg) IV ONE (06:00)
[2016-12-16] MEDS ORDERED: Dexamethasone IV* 4 MG/ML 1 ML (4 MG) IV SLOW PU ONE (06:00)
[2016-12-16] MEDS ORDERED: Buffered Lidocaine 0.9% SYRIN* 5 ML/SYR SYRINGE INTRADERM ONE (06:00)
[2016-12-16] MEDS ORDERED: ceFAZolin 2 GM PREMIX (*) 50 ML IVPB ONE (06:03)
[2016-12-16] MEDS ORDERED: Famotidine IV* 10 MG/ML 2 ML (20 mg) ONE (06:03)
[2016-12-16] MEDS ORDERED: Buffered Lidocaine 0.9% SYRIN* 5 ML/SYR SYRINGE ONE (06:03)
[2016-12-16] MEDS ORDERED: Dexamethasone IV* 4 MG/ML 1 ML (4 MG) ONE (06:03)
[2016-12-16] MEDS ORDERED: Bupivacaine 0.25% SDV* 30 ML ONE (07:03)
[2016-12-16] MEDS ORDERED: Ondansetron INJ* 2 MG/ML VIAL ONE (07:05)
[2016-12-16] MEDS ORDERED: Phenylephrine INJ* 10 MG/ML 1 ML VIAL (10 MG) ONE (07:05)
[2016-12-16] MEDS ORDERED: Morphine PF AMP (0.5MG/ML)* 5 MG/10 ML AMP ONE (07:05)
[2016-12-16] MEDS ORDERED: Propofol* 10 MG/ML 20 ML BTL IV PUSH ONE (07:05)
[2016-12-16] MEDS ORDERED: Bupivacaine 0.5% SDV PF* 30 ML VIAL ONE (07:05)
[2016-12-16] MEDS ORDERED: Midazolam* 1 MG/ML 5 ML VIAL (5 MG) ONE ×2 (07:05→08:00)
[2016-12-16] MEDS ORDERED: KETAMINE HCL* 50 MG/ML 10 ML VIAL ONE (07:05)
[2016-12-16] MEDS ORDERED: ceFAZolin 1 GM in Dextrose (*) 1 GM/50 ML BAG IVPB ONE (07:24)
[2016-12-16] MEDS ORDERED: Naloxone* 0.4 MG/ML 1 ML VIAL IV PRN (08:32)
[2016-12-16] MEDS ORDERED: Ondansetron INJ* 2 MG/ML VIAL IV PRN ×2 (08:32→10:02)
[2016-12-16] MEDS ORDERED: fentaNYL* 50 MCG/ML 2 ML VIAL (100 MCG VIAL) IV PRN (08:32)
[2016-12-16] MEDS ORDERED: DiMENhydriNATE IV* 50 MG/ML VIAL IV PUSH PRN (08:32)
[2016-12-16] MEDS ORDERED: oxyCODONE/Acetamin 5/325 MG* TAB PO PRN ×2 (08:32→10:02)
[2016-12-16] MEDS ORDERED: Nalbuphine* 20 MG/ML 1 ML VIAL IV PRN ×2 (08:32)
[2016-12-16] MEDS ORDERED: Lidocaine 2% PF * 5 ML VIAL ONE (08:50)
[2016-12-16] MEDS ORDERED: Scopolamine 1.5 mg* PATCH TRANSDERM PRN (09:00)
[2016-12-16] MEDS: Ropivacaine* 300 MG in NS 0.9% 250 ML* 240 ML EPIDURAL SCH (10:01)
[2016-12-16] MEDS ORDERED: Polyethylene Glycol 3350* 17 GM PACKET PO PRN (10:02)
[2016-12-16] MEDS ORDERED: Bisacodyl SUPP* 10 MG SUPP PR PRN (10:02)
[2016-12-16] MEDS ORDERED: Acetaminophen TAB* 325 MG PO PRN (10:02)
[2016-12-16] MEDS ORDERED: diPHENhydraMINE IV* 50 MG/ML 1 ml VIAL (BENADRYL) IV PRN (10:02)
[2016-12-16] MEDS ORDERED: Ondansetron TAB* 4 MG PO PRN (10:02)
[2016-12-16] MEDS ORDERED: Morphine INJ* 10 MG/ML 1 ML CARPUJECT IV PRN (10:02)
[2016-12-16] MEDS ORDERED: Nalbuphine* 20 MG/ML 1 ML VIAL ONE (10:04)
[2016-12-16] MEDS ORDERED: Pseudoephedrine TAB* 30 MG PO PRN (10:09)
--- NOTE | 2016-12-16 10:54 | RAD ---
HISTORY: Primary osteoarthritis, status post knee arthroplasty COMPARISONS: None VIEWS: 2, Frontal and lateral views of the right knee FINDINGS: BONE DENSITY: Normal. BONES: The patient is status post right knee arthroplasty. There is no hardware failure or osteolysis. JOINTS: The patient is status post right knee arthroplasty ALIGNMENT: There is no dislocation. SOFT TISSUES: There is post surgical change to the soft tissue OTHER FINDINGS: None. IMPRESSION: STATUS POST RIGHT KNEE ARTHROPLASTY
[2016-12-16] MEDS: D5W 1/2 NS 1000 ML BAG* 1,000 ML IV SCH ×2 (12:10→22:17)
[2016-12-16] MEDS: ceFAZolin 1 GM VIAL(*) 1 GM in NS 0.9% 50 ML* 50 ML IVPB SCH ×2 (14:59→22:53)
--- NOTE | 2016-12-16 15:23 | CONS ---
CC: Dr. Quinonez; Dr. Connor* CONSULTATION NOTE: DATE OF CONSULT: 12/16/2016. PRIMARY CARE PROVIDER: Dr. Quinonez. REQUESTING PROVIDER: Dr. Connor. CONSULTING PROVIDER: LIDIA Michaud. SUPERVISING PHYSICIAN: Dr. Edna Flood. CHIEF COMPLAINT: Status post left total knee replacement. Status post right total knee arthroplasty. HISTORY OF PRESENT ILLNESS: This is a 66-year-old female with obstructive sleep apnea, Gilbert's syndrome, hypothyroidism, and chronic lymphedema, who presented today for elective left total knee replacement with Dr. Connor. Hospitalist group has been consulted for medical comanagement. The patient has been seen by her primary care provider and notes reviewed preceding this hospitalization. Patient was last hospitalized in July of this year approximately 5 months ago for her right total knee replacement and she reported she has no complications with that procedure or recovery. The patient has no known cardiac history. She does have obstructive sleep apnea for which she is compliant with CPAP and has brought that with her for the hospital stay. She denies any recent illnesses including cough, shortness of breath, fever, abdominal pain, and nausea or vomiting. She denies any recent changes to exercise tolerance apart from what has been limiting her due to knee pain. She denies any recent chest pain or palpitations. Patient was examined in the recovery area. She was alert stating that she felt slightly groggy but was status post spinal anesthesia and was accompanied by her . She denied any pain. She had no sensation in her lower extremities. No severe nausea or vomiting, chest pain or shortness of breath. Patient does state that she has been having some intermittent nasal congestion associated with seasonal allergies and she generally treats this with Sudafed at home. PAST MEDICAL HISTORY: 1. Obstructive sleep apnea, compliant with CPAP. 2. Gilbert's syndrome. 3. Hypothyroidism. 4. Chronic lymphedema. PAST SURGICAL HISTORY: 1. Appendectomy. 2. Ovarian cyst excision x2. 3. THANIA/BSO. 4. Right elbow ORIF. 5. Left total knee arthroplasty. HOME MEDICATIONS: 1. Bumex 1 mg p.o. daily. 2. Ibuprofen 400 mg p.o. t.i.d. as needed for pain. 3. Levothyroxine 25 mcg p.o. daily. 4. Multivitamin 1 tablet p.o. daily. 5. Pseudoephedrine 30 mg tablet once daily as needed for nasal congestion. 6. Spironolactone 25 mg p.o. twice daily. SOCIAL HISTORY: Patient lives at home with her . No significant history of smoking and she reports only occasional alcohol use. Her daughter and grandchildren are also in the home with her. REVIEW OF SYSTEMS: As noted above in the HPI, all other systems reviewed and considered negative. PHYSICAL EXAM: Recent vitals: Temperature 97.7 degrees Fahrenheit, pulse 70 beats per minute, respiratory rate 16 per minute, oxygen saturation 98% on 2 L. Blood pressure 108/62 mmHg. General: This is a very pleasant 66-year-old obese female, in no acute distress. She is lying in the recovery area accompanied by her ; alert, awake, and able to provide a full history. HEENT: Head is normocephalic, atraumatic. Mucous membranes are pink and moist. Cardiovascular: Heart has regular rate and rhythm without murmurs, rubs , or gallops. Respiratory: Lungs are clear to auscultation without wheezes, crackles, or rhonchi. Abdomen: Abdomen is soft and nontender to palpation. Extremities: Distal pulses are intact. Right knee has a clean and intact surgical dressing in place. Psych: The patient is alert and appropriately oriented. Skin: Limited exam, shows no concerning rashes or lesions. DIAGNOSTIC STUDIES/LAB DATA: Preop labs from 11/23/16 were reviewed. CBC was within normal limits specifically with preop hemoglobin of 14.7 g/dL. INR of 0.87. Comprehensive metabolic panel was unremarkable. Total bilirubin was noted to be 1.7, which appears to be near her baseline. Last TSH available for review from 05/17/16 was normal at 2.28. IMAGING: Preop EKG provided by primary care provider was reviewed and appeared to be in normal sinus rhythm without any ischemic changes. Preop chest x-ray shows no acute process. ASSESSMENT AND PLAN: This is a pleasant 66-year-old female with obstructive sleep apnea, compliant with CPAP, Gilbert's syndrome, hypothyroidism, chronic lymphedema, and morbid obesity, who is now status post right total knee replacement. The hospitalist group has been asked as a consult for medical co- management in the postoperative period. 1. Status post right total knee replacement - defer further surgical management to the orthopedic surgery team including pain control, DVT prophylaxis, and discharge planning. 2. Chronic lymphedema - this is managed with Bumex and Aldactone - it appears that the patient last took these medications yesterday morning. She is normotensive postoperatively but would recommend holding her diuretics postop day 1 and resuming postop day 2. 3. Hypothyroidism - last TSH available for review is from April of this year and within normal limits. We will defer further management to her primary care provider and maintain levothyroxine at its current dose. 4. Seasonal allergies - the patient has been managing this with p.r.n. Sudafed at home but would prefer to use a non-stimulant medication during her hospital stay and the patient is agreeable to use Claritin, which will be started on a scheduled daily basis postoperatively for her. 5. Gilbert's syndrome - last total bilirubin at 1.7, which is near her baseline and no evidence of jaundice postoperatively. 6. Morbid obesity. BMI is 51.6. 7. Code status. Patient is full code. 8. DVT prophylaxis - per orthopedic surgery. She will be started on Coumadin and enoxaparin. 9. Healthcare proxy is patient's . DISPOSITION: The hospitalist group will continue to follow along postoperatively. Discharge planning per orthopedic surgery. LIDIA MICHAUD [id number]/[facility] #: [id number] MTDD
[2016-12-16] MEDS ORDERED: Warfarin TAB(*) 10 MG PO ONE (17:00)
[2016-12-16] MEDS ORDERED: Warfarin TAB(*) 4 MG PO ONE (17:00)
--- NOTE | 2016-12-16 17:10 | OP ---
OPERATIVE REPORT: DATE OF OPERATION: 12/16/16 - Inpatient, [facility] room 347-02. DATE OF : 50 ATTENDING SURGEON: Reza Connor MD. STAFF TOXICOLOGIST: Nichole Wilde RPA. ANESTHESIOLOGIST: Baldemar Lyman MD. ANESTHESIA: Spinal sedation. PRE-OP DIAGNOSIS: Osteoarthritis, right knee. POST-OP DIAGNOSIS: Osteoarthritis, right knee. OPERATIVE PROCEDURE: Right total knee arthroplasty. ESTIMATED BLOOD LOSS: Less than 50 cc. COMPLICATIONS: None. HARDWARE: Monster Persona #5 femur, D tibia, 12 mm polyethylene, 32 mm all polyethylene patellar button. SUMMARY: Ms. Can is a 66-year-old female who has had a long history of troubles with both of her knees. She had been treated conservatively for years with physical therapy, antiinflammatories and various injections and those had helped until more recently. She had become bone on bone in both knees and had undergone a left total knee arthroplasty. This did work well for her and she reports she was not looking forward to the pain after surgery, but more of the relief that comes after the rehab. She was also bone on bone in the right knee and I discussed with her that a total knee arthroplasty should work well to decrease her pain and improve her function. Risks of surgeries such as infection, scar formation, stiffness, DVT, pulmonary embolism, hardware failure and continued pain were some of the risks discussed. She had been declared medically optimized and wished to proceed. DESCRIPTION OF PROCEDURE: The patient was brought to the OR and a spinal anesthesia was introduced. Aleman catheter was placed. Tourniquet was placed over the proximal right thigh and was used during the case. Total tourniquet time would be 62 minutes. Right knee was prepped and then draped. Nichole Wilde assisted in the prepping as well as the positioning and retracting during the case and it would not have been possible to perform the case without her assistance. Esmarch was used to exsanguinate the leg and the tourniquet was raised. Midline incision was made centered about the patella and was carried down to the medial side of the tibial tubercle and carried upwards for about 4 cm beyond the superior pole of the patella. Incision was carried down through skin and the subcutaneous fat. Small bleeders encountered were ligated using electrocautery. Extensor mechanism was exposed and a sharp parapatellar arthrotomy was made. Clear yellowish joint fluid was encountered. Soft tissues were sharply elevated from the medial side of the tibia and the fat pad was sharply excised. Patella measured 20 mm in thickness and a nice 9 mm cut was taken. Patella was then easily subluxated laterally and the knee was flexed up. Nice exposure of the femoral condyles was obtained. Step drill was used to open the femoral canal and the intramedullary guide was placed. She had been set at a 4 last time and I still had to resect a little bit extra from the medial femoral condyle, so she was set for 3 degrees this time. Cutting guide sat flush and distal femoral cutting guide was then pinned into place. Intramedullary guide was removed and distal femoral cut was taken. It appeared that a nice cut was obtained. She was incised and she sat nicely for a 5. Holes were drilled and the cutting guide was placed, but with drilling the superior hole, it appeared that I would notch anteriorly and the block was moved up 2 mm. This then sat perfectly and the anterior and posterior femoral cuts followed by the chamfer cuts were taken. Attention was turned to the tibia. Step drill was used to open the tibial canal and the intramedullary guide was placed. Outrigger was assembled and adjusted until it appeared it would take 2 mm from the worn medial side. Cutting guide was then pinned into place and the proximal tibial cut was taken. Nice cut was obtained. Additional meniscus that was left behind was sharply removed and she was tried with a 10 block. She had a little bit of play and with a 12 block, it could be seen where the medial femur again needed to have a little bit about 1 mm resected. This was done free hand and the chamfer block was then re-cut on the medial side. It then sat perfectly and the alignment shannan sat directly over the spine of the tibia. Tibia was sized and she sat nicely. The proximal tibia was drilled and punched. Attention was returned to the femur and with the femur in the place, the notch cut was finished and stud holes were drilled. Trial instrumentation was placed and with the 12, she came out nicely into full extension and easily flexed to about 110 degrees, being limited more by her body habitus. Even without the patellar button, the patella tracking was good. Patella was sized and the 32 sat nicely. Holes were drilled and the trial was snapped into the place. Patella tracking was still fine. Trial instrumentation was removed and the knee was copiously pulse lavaged. Cement was being prepared. Tibia followed by femur and patella were all cemented into place. Excess cement was removed and the cement was allowed to harden. She was again trialed in with a 12 and had the same wonderful motion and stability. Knee was again searched for excess cement and a few small pieces were found. Knee was copiously pulse lavaged. A 12 polyethylene was then snapped into the place. Parapatellar arthrotomy was repaired using interrupted #1 Vicryl sutures and then tourniquet was let down. No significant bleeding was encountered. The knee was again copiously pulse lavaged and the subcutaneous tissues were reapproximated with 2-0 Vicryl. Skin was closed using maximo. Sterile dressing and a Cryo/Cuff were applied in the OR. The patient was then awakened stable on transfer to the recovery room. [id number]/[facility] #: [id number] NURA
[2016-12-16] MEDS ORDERED: Spironolactone TAB* 25 MG PO SCH (21:00)
[2016-12-16] MEDS: Magnesium Hydroxide LIQ* 30 ML UDC PO SCH (21:15)
[2016-12-16] MEDS: Docusate CAP* 100 MG PO SCH (21:15)
[2016-12-16] MEDS: oxyCODONE/Acetamin 5/325 MG* TAB PO PRN (23:51)
--- NOTE | 2016-12-17 00:39 | HP ---
CC: Dr. Quinonez; Dr. Connor HISTORY AND PHYSICAL: ADDENDUM: PRIMARY CARE PROVIDER: Dr. Quinonez. REQUESTING PHYSICIAN: Dr. Connor. HISTORY OF PRESENT ILLNESS: Ms. Can is a 66-year-old lady with a past medical history of obstruct kulwinder sleep apnea, hypothyroidism, chronic lymphedema, Gilbert syndrome, that [place] [facility] [place] for an elective right total knee arthropathy. Hospitalist service was consulted for medical ma nagement of her comorbidities. The case was reviewed and discussed with Ta Nuñez, physician alfonso marroquin, and I am in agreement with current management. [id number]/[facility] #: [id number]
[2016-12-17] MEDS: oxyCODONE/Acetamin 5/325 MG* TAB PO PRN ×4 (04:35→19:31)
[2016-12-17 06:53] LABS: Hematocrit 34 % (35-47); Hemoglobin 11.3 g/dl (12.0-16.0)
[2016-12-17 07:09] LABS: BUN/Creatinine Ratio 13.9 (8-20); Calcium 8.7 mg/dL (8.6-10.3); EGFR African American 93.6 (>60); EGFR Non-African American 72.8 (>60); Potassium 4.1 mmol/L (3.5-5.0)
[2016-12-17] MEDS: ceFAZolin 1 GM VIAL(*) 1 GM in NS 0.9% 50 ML* 50 ML IVPB SCH (07:12)
[2016-12-17] MEDS: oxyCODONE TAB* 5 MG TAB PO PRN (07:13)
--- NOTE | 2016-12-17 07:52 | PN ---
Progress Note - Progress Note Date of Service: 12/17/16 SOAP: Subjective: patient resting comfortably with no complaints of pain Objective: Vital Signs Temp Pulse Resp BP Pulse Ox 98.8 F 82 18 115/60 95 12/17/16 04:08 12/17/16 04:44 12/17/16 07:13 12/17/16 04:44 12/17/16 04:08 Laboratory Last Values Hgb 11.3 g/dl (12.0-16.0) L 12/17/16 06:44 Hct 34 % (35-47) L 12/17/16 06:44 INR (Anticoag Therapy) 1.18 (0.89-1.11) H 12/17/16 06:43 Sodium 133 mmol/L (133-145) 12/17/16 06:44 Potassium 4.1 mmol/L (3.5-5.0) 12/17/16 06:44 Chloride 100 mmol/L (101-111) L 12/17/16 06:44 Carbon Dioxide 30 mmol/L (22-32) 12/17/16 06:44 Anion Gap 3 mmol/L (2-11) 12/17/16 06:44 BUN 11 mg/dL (6-24) 12/17/16 06:44 Creatinine 0.79 mg/dL (0.51-0.95) 12/17/16 06:44 Est GFR ( Amer) 93.6 (>60) 12/17/16 06:44 Est GFR (Non-Af Amer) 72.8 (>60) 12/17/16 06:44 BUN/Creatinine Ratio 13.9 (8-20) 12/17/16 06:44 Glucose 124 mg/dL (70-100) H 12/17/16 06:44 Calcium 8.7 mg/dL (8.6-10.3) 12/17/16 06:44 incision: c/d/i PE: NVI Assessment: s/p right TKA Plan: 1) PT/OT- WBAT 2) heparin/coumadin for DVT prophylaxis 3) hospitalist co-managing 4) Abx for 24 hours post-op
[2016-12-17] MEDS ORDERED: BUMETANIDE PO SCH (09:00)
[2016-12-17] MEDS ORDERED: Levothyroxine TAB* 25 MCG TAB PO SCH (09:00)
[2016-12-17] MEDS: Ropivacaine* 300 MG in NS 0.9% 250 ML* 240 ML EPIDURAL SCH (09:07)
[2016-12-17] MEDS: Cetirizine* 10 MG TAB PO SCH (09:14)
[2016-12-17] MEDS: Heparin VIAL(*) 5000 UNITS/ML VIAL (FIVE THOUSAND) SUBCUT SCH ×2 (09:14→17:34)
[2016-12-17] MEDS: Docusate CAP* 100 MG PO SCH ×2 (09:14→19:31)
[2016-12-17] MEDS: Magnesium Hydroxide LIQ* 30 ML UDC PO SCH ×2 (09:14→19:31)
[2016-12-17] MEDS: Vitamin THERAPEUTIC TAB PO SCH (09:14)
[2016-12-17] MEDS: Levothyroxine TAB* 25 MCG TAB PO SCH (11:28)
[2016-12-17] MEDS ORDERED: Warfarin TAB(*) 4 MG PO ONE (17:00)
--- NOTE | 2016-12-17 18:04 | PN ---
Subjective Date of Service: 12/17/16 Interval History: Ms. Can states that she has had a difficulty day with pain to her left knee but feels optimistic that tomorrow with be better. She denies other complaint including chest pain, SOB, nausea, or abdominal pain. Objective Active Medications: Acetaminophen (Tylenol Tab*) 650 mg PO Q4H PRN Bisacodyl (Dulcolax Supp*) 10 mg LA DAILY PRN Bumetanide (Bumex Tab*) 1 mg PO QAM [facility] Cetirizine HCl (Zyrtec*) 10 mg PO DAILY [facility] Dimenhydrinate (Dramamine Iv*) 25 mg IV PUSH ONCE PRN Diphenhydramine HCl (Benadryl Iv*) 12.5 mg IV Q6H PRN Docusate Sodium (Colace Cap*) 100 mg PO BID NEVA Heparin Sodium (Porcine) (Heparin Vial(*)) 5,000 units SUBCUT Q8H [facility] Ropivacaine 300 mg/ Sodium (Chloride) 300 mls @ 0 mls/hr EPIDURAL Q24H [facility]; Per Protocol Lactated Ringer's (Lactated Ringers 1000 Ml Bag*) 1,000 mls @ 2,000 mls/hr IV ONCE PRN Dextrose/Sodium Chloride (D5w 1/2 Ns 1000 Ml Bag*) 1,000 mls @ 100 mls/hr IV PER RATE NEVA Lactulose (Lactulose*) 30 ml PO Q6H PRN Levothyroxine Sodium (Synthroid Tab*) 25 mcg PO 0600 [facility] Magnesium Hydroxide (Milk Of Magnesia Liq*) 30 ml PO BID [facility]EV[facility] Morphine Sulfate (Morphine Inj (Syringe)*) 5 mg IV Q2H PRN Multivitamins (Theragran Tab*) 1 tab PO DAILY [facility] Ondansetron HCl (Zofran Inj*) 4 mg IV Q6H PRN Ondansetron HCl (Zofran Inj*) 4 mg IV Q6H PRN Ondansetron HCl (Zofran Tab*) 4 mg PO Q6H PRN Oxycodone HCl (Roxycodone Tab*) 10 mg PO Q3HR PRN Oxycodone/Acetaminophen (Percocet 5/325 Tab*) 1 tab PO Q3H PRN Oxycodone/Acetaminophen (Percocet 5/325 Tab*) 2 tab PO Q4H PRN Oxycodone/Acetaminophen (Percocet 5/325 Tab*) 1 tab PO Q3H PRN Pharmacy Profile Note (Scopolomine Patch Remove*) 1 note PATCH OFF .AFTER 72 HOURS ONE Pharmacy Profile Note (Coumadin Daily Reminder*) 1 note FOLLOW UP 1700 [facility] Polyethylene Glycol/Electrolytes (Miralax*) 17 gm PO DAILY PRN Scopolamine (Transderm-Scop 1.5 Mg Patch*) 1 patch TRANSDERM Q72H PRN Spironolactone (Aldactone Tab*) 25 mg PO BID NEVA Vital Signs: Temp Pulse Resp BP Pulse Ox 99.0 F 72 16 116/48 97 12/17/16 11:41 12/17/16 11:41 12/17/16 17:03 12/17/16 11:41 12/17/16 11:41 Oxygen Devices in Use Now: None Appearance: Female lying in bed in NAD Eyes: No Scleral Icterus Ears/Nose/Mouth/Throat: Mucous Membranes Moist Neck: NL Appearance and Movements; NL JVP, Trachea Midline Respiratory: Symmetrical Chest Expansion and Respiratory Effort, Clear to Auscultation Cardiovascular: NL Sounds; No Murmurs; No JVD, No Edema Abdominal: NL Sounds; No Tenderness; No Distention Lymphatic: No Cervical Adenopathy Extremities: No Edema Skin: No Rash or Ulcers Neurological: Alert and Oriented x 3, NL Muscle Strength and Tone Nutrition: Taking PO's Result Diagrams: 12/17/16 06:44 12/17/16 06:44 Assess/Plan/Problems-Billing Assessment: Ms. Can is a 66 yo female with a PMH of chronic lymphedema, GREGORIA, and hypothyroidism who was admitted on 12/16/16 for a left knee replacement. - Patient Problems (1) Status post total left knee replacement Comment: - Management per ortho. - Pain meds prn with bowel regimen. - H/H. (2) Ruidoso syndrome Comment: - No evidence of jaundice. (3) HTN (hypertension) Comment: - SBP 90-100s. - Hold bumex and aldactone until BP improves. (4) Hypothyroidism Comment: - Cont levothyroxine (5) GREGORIA (obstructive sleep apnea) Comment: - Cont CPAP (6) DVT prophylaxis Comment: - Heparin SQ with warfarin per ortho. Status and Disposition: Inpatient with disposition per ortho.
[2016-12-18] MEDS: oxyCODONE TAB* 5 MG TAB PO PRN ×4 (02:00→23:43)
[2016-12-18] MEDS: Heparin VIAL(*) 5000 UNITS/ML VIAL (FIVE THOUSAND) SUBCUT SCH ×2 (02:00→10:51)
[2016-12-18] MEDS: Levothyroxine TAB* 25 MCG TAB PO SCH (05:57)
[2016-12-18 06:20] LABS: Hematocrit 34 % (35-47); Hemoglobin 11.2 g/dl (12.0-16.0)
[2016-12-18] MEDS: Ropivacaine* 300 MG in NS 0.9% 250 ML* 240 ML EPIDURAL SCH (08:31)
[2016-12-18] MEDS: Cetirizine* 10 MG TAB PO SCH (09:18)
[2016-12-18] MEDS: Spironolactone TAB* 25 MG PO SCH ×2 (09:18→19:32)
[2016-12-18] MEDS: oxyCODONE/Acetamin 5/325 MG* TAB PO PRN ×2 (09:18→18:22)
[2016-12-18] MEDS: Bumetanide TAB* 1 MG PO SCH (09:18)
[2016-12-18] MEDS: Vitamin THERAPEUTIC TAB PO SCH (09:18)
[2016-12-18] MEDS: Docusate CAP* 100 MG PO SCH ×2 (09:18→19:32)
--- NOTE | 2016-12-18 10:24 | PN ---
Progress Note - Progress Note Date of Service: 12/18/16 SOAP: Subjective: []Patient seen at bedside, doing well. Denies SOB, CP or dizziness. No new complaints. Pain tolerable. Objective: [] Vital Signs Temp 98.4 F 12/18/16 07:41 Pulse 77 12/18/16 07:41 Resp 16 12/18/16 09:18 BP 117/58 12/18/16 07:41 Pulse Ox 90 12/18/16 07:41 Intake & Output 12/17/16 12/18/16 12/18/16 18:59 06:59 18:59 Intake Total 1360 800 Output Total 950 2100 Balance 410 -1300 Intake: IV Fluids 220 D5W 1/2 NS 220 IVPB 60 D5W 1/2 NS 60 Oral 1080 800 Output: Aleman 950 2100 Other: # Bowel Movements 0 Laboratory Results - last 24 hr 12/18/16 12/18/16 05:44 05:44 Hgb 11.2 L Hct 34 L INR (Anticoag Therapy) 2.22 H Right knee dressings changed, wound benign new 4x4s and REBEL applied calf NT, mild warmth in BL LE's with pink skin noted- baseline per patient secondary to lymphedema +DF/PF right ankle sensation intact distally Assessment: []s/p Right total knee arthroplasty POD #2 Plan: []PT/OT WBAT Hold coumadin today Heparin discontinued Home tomorrow
[2016-12-18] MEDS: Magnesium Hydroxide LIQ* 30 ML UDC PO SCH ×2 (10:55→19:32)
--- NOTE | 2016-12-18 12:55 | PN ---
Subjective Date of Service: 12/18/16 Interval History: Patient states that pain in knee is improving and is responsive to pain medication. Patient states that she has not been dizzy and has been producing copious urine in response to reinstitution of diuretics. No CP, SOB, N/V, F/C abdominal pain, dysuria, back pain, or other new pain. ISB up to 1500, patient will continue to use. Patient states that her LE swelling is a baseline. Family History: Unchanged from Admission Social History: Unchanged from Admission Past Medical History: Unchanged from Admission Objective Active Medications: Acetaminophen (Tylenol Tab*) 650 mg PO Q4H PRN PRN Reason: pain, fever Bisacodyl (Dulcolax Supp*) 10 mg RI DAILY PRN PRN Reason: constipation Bumetanide (Bumex Tab*) 1 mg PO QAM [facility] Last Admin: 12/18/16 09:18 Dose: 1 mg Cetirizine HCl (Zyrtec*) 10 mg PO DAILY [facility] Last Admin: 12/18/16 09:18 Dose: 10 mg Dimenhydrinate (Dramamine Iv*) 25 mg IV PUSH ONCE PRN PRN Reason: NAUSEA/VOMITING Diphenhydramine HCl (Benadryl Iv*) 12.5 mg IV Q6H PRN PRN Reason: PRURITIS Docusate Sodium (Colace Cap*) 100 mg PO BID [facility] Last Admin: 12/18/16 09:18 Dose: 100 mg Ropivacaine 300 mg/ Sodium (Chloride) 300 mls @ 0 mls/hr EPIDURAL Q24H [facility]; Per Protocol PRN Reason: Protocol Last Admin: 12/18/16 08:31 Dose: Not Given Lactated Ringer's (Lactated Ringers 1000 Ml Bag*) 1,000 mls @ 2,000 mls/hr IV ONCE PRN PRN Reason: FOR SBP < 90 Dextrose/Sodium Chloride (D5w 1/2 Ns 1000 Ml Bag*) 1,000 mls @ 100 mls/hr IV PER RATE [facility] Last Admin: 12/16/16 22:17 Dose: 100 mls/hr Lactulose (Lactulose*) 30 ml PO Q6H PRN PRN Reason: constipation Levothyroxine Sodium (Synthroid Tab*) 25 mcg PO 0600 [facility] Last Admin: 12/18/16 05:57 Dose: 25 mcg Magnesium Hydroxide (Milk Of Magnesia Liq*) 30 ml PO BID [facility] Last Admin: 12/18/16 10:55 Dose: 30 ml Morphine Sulfate (Morphine Inj (Syringe)*) 5 mg IV Q2H PRN PRN Reason: PAIN - BREAKTHROUGH Multivitamins (Theragran Tab*) 1 tab PO DAILY [facility] Last Admin: 12/18/16 09:18 Dose: 1 tab Ondansetron HCl (Zofran Inj*) 4 mg IV Q6H PRN PRN Reason: NAUSEA/VOMITING Ondansetron HCl (Zofran Inj*) 4 mg IV Q6H PRN PRN Reason: nausea Ondansetron HCl (Zofran Tab*) 4 mg PO Q6H PRN PRN Reason: NAUSEA Oxycodone HCl (Roxycodone Tab*) 10 mg PO Q3HR PRN PRN Reason: PAIN - MODERATE TO SEVERE Last Admin: 12/18/16 12:46 Dose: 10 mg Oxycodone/Acetaminophen (Percocet 5/325 Tab*) 1 tab PO Q3H PRN PRN Reason: moderate pain Oxycodone/Acetaminophen (Percocet 5/325 Tab*) 2 tab PO Q4H PRN PRN Reason: moderate pain Last Admin: 12/18/16 09:18 Dose: 2 tab Oxycodone/Acetaminophen (Percocet 5/325 Tab*) 1 tab PO Q3H PRN PRN Reason: PAIN - MILD TO MODERATE Last Admin: 12/18/16 04:03 Dose: 1 tab Pharmacy Profile Note (Scopolomine Patch Remove*) 1 note PATCH OFF .AFTER 72 HOURS ONE Stop: 12/19/16 08:39 Pharmacy Profile Note (Coumadin Daily Reminder*) 1 note FOLLOW UP 1700 [facility] Last Admin: 12/17/16 17:36 Dose: 1 note Polyethylene Glycol/Electrolytes (Miralax*) 17 gm PO DAILY PRN PRN Reason: Constipation Scopolamine (Transderm-Scop 1.5 Mg Patch*) 1 patch TRANSDERM Q72H PRN PRN Reason: NAUSEA Spironolactone (Aldactone Tab*) 25 mg PO BID [facility] Last Admin: 12/18/16 09:18 Dose: 25 mg Vital Signs 12/17/16 12/17/16 12/17/16 13:11 15:03 15:28 Temperature 97.8 F Pulse Rate 74 Respiratory 16 16 16 Rate Blood Pressure 120/61 (mmHg) O2 Sat by Pulse 91 Oximetry 12/17/16 12/17/16 12/17/16 17:03 18:37 19:31 Temperature Pulse Rate Respiratory 16 16 Rate Blood Pressure (mmHg) O2 Sat by Pulse 99 Oximetry 12/17/16 12/17/16 12/17/16 20:00 20:08 20:33 Temperature 99.5 F Pulse Rate 80 Respiratory 16 16 Rate Blood Pressure 126/56 (mmHg) O2 Sat by Pulse 99 92 Oximetry 12/17/16 12/17/16 12/18/16 21:30 23:51 02:00 Temperature 98.8 F Pulse Rate 81 Respiratory 15 16 16 Rate Blood Pressure 136/52 (mmHg) O2 Sat by Pulse 92 Oximetry 12/18/16 12/18/16 12/18/16 03:57 03:59 04:03 Temperature 98.7 F Pulse Rate 79 Respiratory 16 15 15 Rate Blood Pressure 141/62 (mmHg) O2 Sat by Pulse 94 Oximetry 12/18/16 12/18/16 12/18/16 05:52 05:57 07:41 Temperature 98.4 F Pulse Rate 77 Respiratory 15 16 16 Rate Blood Pressure 117/58 (mmHg) O2 Sat by Pulse 90 Oximetry 12/18/16 12/18/16 12/18/16 08:15 09:18 10:56 Temperature Pulse Rate Respiratory 16 16 16 Rate Blood Pressure (mmHg) O2 Sat by Pulse Oximetry 12/18/16 12:46 Temperature Pulse Rate Respiratory 16 Rate Blood Pressure (mmHg) O2 Sat by Pulse Oximetry Oxygen Devices in Use Now: None Appearance: Patient is a 66yo female who appears stated age and is sitting comfortably in the chair in [facility]. Eyes: No Scleral Icterus, PERRLA Ears/Nose/Mouth/Throat: NL Teeth, Lips, Gums, Clear Oropharnyx, Mucous Membranes Moist Neck: NL Appearance and Movements; NL JVP Respiratory: Symmetrical Chest Expansion and Respiratory Effort, - - Slight inspiratory cracles that resolved with deep breathing. Cardiovascular: NL Sounds; No Murmurs; No JVD, RRR, - - Pulses 2+ in radial, DP , PT. 2+ pitting edema present B/L roughly equal. Abdominal: NL Sounds; No Tenderness; No Distention, No Hepatosplenomegaly, - - Exam limited by body habitus Lymphatic: No Cervical Adenopathy Extremities: No Clubbing, Cyanosis Skin: No Rash or Ulcers, No Nodules or Sclerosis, - - Knee covered with bulky dressing and ice pack. Neurological: Alert and Oriented x 3 Result Diagrams: 12/18/16 05:44 12/17/16 06:44 Assess/Plan/Problems-Billing Assessment: Ms. Can is a 66 yo female with a PMH of chronic lymphedema, GREGORIA, and hypothyroidism who was admitted on 12/16/16 for a left knee replacement. Patient is stable and on home medications. - Patient Problems (1) Status post total left knee replacement Current Visit: Yes Status: Acute Code(s): Z96.652 - PRESENCE OF LEFT ARTIFICIAL KNEE JOINT SNOMED Code(s): 7549983745300 Comment: - Management per ortho. - Pain meds prn with bowel regimen. - H/H. (2) DVT prophylaxis Current Visit: No Status: Acute Code(s): ZRW0617 - SNOMED Code(s): 160841845 Comment: - Heparin SQ with warfarin per ortho. (3) Full code status Current Visit: No Status: Acute Code(s): Z78.9 - OTHER SPECIFIED HEALTH STATUS SNOMED Code(s): 401739359 (4) HTN (hypertension) Current Visit: No Status: Acute Code(s): I10 - ESSENTIAL (PRIMARY) HYPERTENSION SNOMED Code(s): 23901400 Comment: Normotensive, Resumed diuretics today. No s/s of hypotension (5) Hypothyroidism Current Visit: No Status: Acute Code(s): E03.9 - HYPOTHYROIDISM, UNSPECIFIED SNOMED Code(s): 71197394 Comment: Cont levothyroxine at home dose (6) GREGORIA (obstructive sleep apnea) Current Visit: No Status: Acute Code(s): G47.33 - OBSTRUCTIVE SLEEP APNEA ( ADULT) (PEDIATRIC) SNOMED Code(s): 99400909 Comment: Cont CPAP from home Status and Disposition: Inpatient with disposition per ortho. Thank you for the consult. Will sign off for now, will follow up as needed. Please call with questions.
[2016-12-19] MEDS: oxyCODONE TAB* 5 MG TAB PO PRN (06:09)
[2016-12-19] MEDS: Levothyroxine TAB* 25 MCG TAB PO SCH (06:09)
[2016-12-19 07:36] LABS: Hematocrit 34 % (35-47); Hemoglobin 11.3 g/dl (12.0-16.0)
[2016-12-19] MEDS ORDERED: Scopolomine PATCH Remove* 1 NOTE MISC PATCH OFF ONE (08:38)
[2016-12-19] MEDS: Docusate CAP* 100 MG PO SCH (09:08)
[2016-12-19] MEDS: Magnesium Hydroxide LIQ* 30 ML UDC PO SCH (09:08)
[2016-12-19] MEDS: Vitamin THERAPEUTIC TAB PO SCH (09:08)
[2016-12-19] MEDS: Spironolactone TAB* 25 MG PO SCH (09:09)
[2016-12-19] MEDS: Cetirizine* 10 MG TAB PO SCH (09:09)
[2016-12-19] MEDS: Ropivacaine* 300 MG in NS 0.9% 250 ML* 240 ML EPIDURAL SCH (09:12)
[2016-12-19] MEDS: Bumetanide TAB* 1 MG PO SCH (09:13)
--- NOTE | 2016-12-19 09:35 | PN ---
Progress Note - Progress Note Date of Service: 11/18/16 SOAP: Subjective: []Patient seen OOB in chair. She is feeling well, pain managed right knee. Feels she is ready to go home this afternoon. Objective: [] Vital Signs Temp 99 F 12/19/16 07:44 Pulse 79 12/19/16 07:44 Resp 18 12/19/16 09:09 BP 137/68 12/19/16 07:44 Pulse Ox 93 12/19/16 07:44 Intake & Output 12/18/16 12/19/16 12/19/16 18:59 06:59 18:59 Intake Total 750 1100 360 Output Total 2075 550 300 Balance -1325 550 60 Intake: Oral 750 1100 360 Output: Urine 2075 550 300 Other: # Bowel Movements 0 Estimated Stool Amount Large Large Large Laboratory Results - last 24 hr 12/19/16 12/19/16 07:20 07:24 Hgb 11.3 L Hct 34 L INR (Anticoag Therapy) 2.15 H Right knee incision benign calf NT neuro intact distally Assessment: []s/p Right total knee arthroplasty POD #3 Plan: []PT WBAT RLE 2 mg Coumadin today before discharge home with VNS services Follow up as scheduled with Dr. Connor
[2016-12-19 11:54] VITALS: BP 138/71
[2016-12-19] MEDS ORDERED: Warfarin TAB(*) 2 MG PO ONE (17:00)
--- NOTE | 2016-12-19 23:49 | DS ---
Amended report to enter cosigning doctor. DISCHARGE SUMMARY: DATE OF ADMISSION: 12/16/16 DATE OF DISCHARGE: 12/19/16 ATTENDING PHYSICIAN: Reza Connor MD* (dictated by LIDIA Singh). ADMISSION DIAGNOSIS: Osteoarthritis, right knee. DISCHARGE DIAGNOSIS: Osteoarthritis, right knee. SURGERY PERFORMED: Right total knee arthroplasty. HOSPITAL COURSE: The patient is a 66-year-old female with long history of bilateral knee osteoarthritis. She previously underwent a left total knee arthroplasty and developed [id number] degenerative changes in her right knee. Due to the fact she can no longer tolerate this pain and her activities of daily living or significantly impeded, she elected to proceed with the aforementioned procedure. She was taken to the operating room under the care of Dr. Reza Connor on the date of 12/16/16. She tolerated the procedure well and left the operating room in stable condition. Postoperatively, she progressed satisfactorily with physical therapy and occupational therapy goals. She was followed by the medical team and had no significant medical problems postoperatively. She progressed satisfactorily with PT and OT goals and it was felt she was stable medically and orthopedically for discharge to home on the date of 12/19/16. CONDITION ON DISCHARGE: Temperature 98.8, pulse 88, respiratory rate 18, O2 sat 97% on room air, blood pressure 138/71. Examination of her right knee reveals no evidence of infection. Her cath is nontender and soft. Her neurovascular status is intact. She has active dorsiflexion and plantarflexion of her right ankle. PLAN: Discharge to home. Continue with physical therapy exercises, bearing weight as tolerated on the right lower extremity. She will continue with Coumadin for her DVT prophylaxis. She was given 2 mg of Coumadin on . She will take 2 mg of Coumadin on 12/20/16; 2 mg of Coumadin on Friday , 12/21/16; and 2 mg of Coumadin on 12/22/16. She will have a repeat INR blood draw on 12/23/16 with dosages to follow. She will follow up as scheduled in the office with Dr. Connor. If she has any problems with increased pain, swelling, swelling, drainage, calf pain or swelling, fever, chills, the office is to be contacted prior to her scheduled appointment. LIDIA SINGH [id number]/[facility] #: [id number] [facility]
== END 2016-12-19 15:25 | disposition home health service (06) | DRG 470 ==
LOC: AA 05:54 → SSU 10:02
PROVIDERS: ADMIT Orthopaedic Surgery; ATTEND Orthopaedic Surgery
PROC: 0SRC0J9 Replacement of Right Knee Joint with Synthetic Substitute, Cemented, Open Approach (ICD-10-PCS; principal; 2016-12-16 07:30)
DX: M17.11 Unilateral primary osteoarthritis, right knee (principal); Z68.43 Body mass index [BMI] 50.0-59.9, adult; E66.01 Morbid (severe) obesity due to excess calories; E55.9 Vitamin D deficiency, unspecified; E03.9 Hypothyroidism, unspecified; G47.33 Obstructive sleep apnea (adult) (pediatric); Z96.652 Presence of left artificial knee joint; I89.0 Lymphedema, not elsewhere classified; E80.4 Gilbert syndrome; M85.80 Other specified disorders of bone density and structure, unspecified site; K21.9 Gastro-esophageal reflux disease without esophagitis; Z88.1 Allergy status to other antibiotic agents; Z82.49 Family history of ischemic heart disease and other diseases of the circulatory system; Z80.1 Family history of malignant neoplasm of trachea, bronchus and lung; Z72.89 Other problems related to lifestyle; J30.2 Other seasonal allergic rhinitis
CPT/HCPCS: 36415; 62327; 80048; 85014; 85018; 85610; 88305; 88311; 94760; A9270-GY; C1776; J0690; J1100; J1644; J2250; J2300; J2405; J2704; J2795